=== PATIENT | female | born 1995 | race American Indian/Alaskan Native ===

== ENCOUNTER 2016-09-29 15:39 | Emergency (ER) | payer SELFPAY ==
[2016-09-30 09:06] LABS: URINE BILIRUBIN NEGATIVE (NEGATIVE); URINE CLARITY Clear (Clear); URINE COLOR AMBER (YELLOW); URINE GLUCOSE (UA) NORMAL (Normal)
[2016-09-30 09:07] LABS: HCG,QUALITATIVE URINE POSITIVE (NEGATIVE); SQUAMOUS EPITHIAL 11 /hpf (0-5); URINE BACTERIA RARE (<OCC); URINE BLOOD NEGATIVE (NEGATIVE); URINE LEUKOCYTE ESTERASE TRACE Leu/uL (Negative); URINE NITRATE NEGATIVE (NEGATIVE); URINE PROTEIN 2+ mg/dL (NEGATIVE); URINE UROBILINOGEN NORMAL mg/dL (0.2-1.0)
== END 2016-09-29 16:55 | disposition home or self-care (01) ==
LOC: C.ER 15:39
DX: Z32.01 Encounter for pregnancy test, result positive (principal)

== ENCOUNTER 2016-10-06 15:42 | Emergency (ER) | payer SELFPAY ==
[2016-10-06 15:56] VITALS: O2SAT 100
[2016-10-06] MEDS ORDERED: Sodium Chloride 0.9% 1,000 ML IV ONE (16:18)
--- NOTE | 2016-10-06 16:28 | C.PDOC ---
History Of Present Illness Patient presents to ED c/o nausea and vomiting a "parasite" this morning after breakfast. Patient is currently approx 5 weeks , LMP 6/10. She recently moved here from [facility] in June 2016. She denies current abdominal pain, fever, diarrhea, rectal bleeding, vaginal bleeding/discharge. She has no prior history of parasitic infections. Time Seen by Provider: 10/06/16 15:59 Chief Complaint (Nursing): GI Problem History Per: Patient, Family () History/Exam Limitations: language barrier Onset/Duration Of Symptoms: Hrs Current Symptoms Are (Timing): Better Severity: Mild Associated Symptoms: Nausea, Vomiting Past Medical History Reviewed: Historical Data, Nursing Documentation, Vital Signs Vital Signs: Last Vital Signs Temp 98.2 F 10/06/16 18:15 Pulse 90 10/06/16 18:15 Resp 16 10/06/16 18:15 BP 108/70 10/06/16 18:15 Pulse Ox 100 10/06/16 18:15 - Medical History PMH: No Chronic Diseases Family History: States: No Known Family Hx - Social History Hx Alcohol Use: No Hx Substance Use: No - Immunization History Hx Tetanus Toxoid Vaccination: Yes Hx Influenza Vaccination: No Hx Pneumococcal Vaccination: No Review Of Systems Except As Marked, All Systems Reviewed And Found Negative. Constitutional: Negative for: Fever, Chills Cardiovascular: Negative for: Chest Pain Respiratory: Negative for: Cough, Shortness of Breath Gastrointestinal: Positive for: Nausea, Vomiting. Negative for: Abdominal Pain , Diarrhea Genitourinary: Negative for: Dysuria, Hematuria, Vaginal Discharge, Vaginal Bleeding Physical Exam - Physical Exam Appears: Well, Non-toxic, No Acute Distress Oral Mucosa: Moist Cardiovascular: Rhythm Regular Respiratory: Normal Breath Sounds, No Rales, No Rhonchi, No Wheezing Gastrointestinal/Abdominal: Normal Exam, Bowel Sounds, Soft, No Tenderness Extremity: Normal ROM, No Pedal Edema, No Calf Tenderness Neurological/Psych: Oriented x3 ED Course And Treatment - Laboratory Results Result Diagrams: 10/06/16 16:47 10/06/16 16:47 O2 Sat by Pulse Oximetry: 100 (RA) Pulse Ox Interpretation: Normal Progress Note: Patient has picture of what appears to be an intestinal round worm (Ascaris?) that she vomited up [employer]. Blood work, UA, ova/parasite stool sample ordered. Patient given IV NS bolus. Will discuss with ID. Reevaluation Time: 18:15 Reassessment Condition: Improved (Patient reassessed, is currently comfortable, in no pain/distress. Patient instructed to follow up with ID physician within 1 week. She understands she should return to ED if symptoms worsen. Stool studies sent and pending, to be followed up by ID.) - Physician Consult Information Physician Contacted: Alanis Allen Outcome Of Conversation: Discussed patient with otolaryngology surgeon ID, she recommends treated patient symptomatically only at this time, getting stool ova/parasites and outpatient followup if stool is (+). Disposition Counseled Patient/Family Regarding: Studies Performed, Diagnosis, Need For Followup, Rx Given - Disposition Referrals: Alanis Allen MD [Staff Provider] - [facility] [Outside] [facility] [Outside] Disposition: HOME/ ROUTINE Disposition Time: 18:15 Condition: STABLE Additional Instructions: FOLLOW UP WITH INFECTIOUS DISEASE SPECIALIST WITHIN 1 WEEK USE MEDICATION FOR NAUSEA NEEDED RETURN TO ER IF SYMPTOMS WORSEN Prescriptions: Ondansetron [Zofran Odt] 4 mg PO Q8 PRN #12 odt PRN Reason: Nausea/Vomiting Multivit/Folic Acid/I [ Plus] 1 tab PO DAILY #30 tab Forms: General Discharge Instructions Print Language: DIVEHI - POA Present On Arrival: None - Clinical Impression Clinical Impression: Parasite infection, Nausea and vomiting,
[2016-10-06 16:50] LABS: BASO % 0.7 % (0.0-2.0); EOS # 0.1 K/uL (0.0-0.7); EOS % 1.4 % (0.0-4.0); HEMOGLOBIN 12.1 g/dL (11.0-16.0); LYMPH # 1.5 K/uL (1.0-4.3); LYMPH % 30.1 % (20.0-40.0); MEAN CELL VOLUME 92.2 fL (81.0-99.0); MEAN CORPUSCULAR HEMOGLOBIN 30.8 pg (27.0-31.0); MEAN CORPUSCULAR HGB CONC 33.3 g/dL (33.0-37.0); MEAN PLATELET VOLUME 9.4 fL (7.2-11.7); MONO # 0.4 K/uL (0.0-0.8); MONO % 8.3 % (0.0-10.0); NEUT % 59.5 % (50.0-75.0); RBC 3.92 Mil/uL (3.80-5.20); RED CELL DISTRIBUTION WIDTH 12.3 % (11.5-14.5); WHITE BLOOD COUNT 5.1 K/uL (4.8-10.8)
[2016-10-06 16:58] LABS: SQUAMOUS EPITHIAL 122 /hpf (0-5); URINE BILIRUBIN NEGATIVE (NEGATIVE); URINE BLOOD NEGATIVE (NEGATIVE); URINE CLARITY Hazy (Clear); URINE COLOR Amber (YELLOW); URINE GLUCOSE (UA) NORMAL (Normal); URINE LEUKOCYTE ESTERASE 2+ Leu/uL (Negative); URINE NITRATE NEGATIVE (NEGATIVE); URINE PROTEIN 1+ mg/dL (NEGATIVE); URINE UROBILINOGEN NORMAL mg/dL (0.2-1.0)
[2016-10-06 16:59] LABS: ALBUMIN 4.2 g/dL (3.5-5.0)
[2016-10-06 17:02] LABS: ALT/SGPT 63 U/L (9-52); AST/SGOT 41 U/L (14-36); BLOOD UREA NITROGEN 5 mg/dL (7-17); GFR AFRICAN-AMERICAN > 60; GFR NON-AFRICAN AMERICAN > 60
[2016-10-06 17:03] LABS: CALCIUM 9.5 mg/dl (8.6-10.4); LIPASE 96 U/L (23-300)
[2016-10-06 17:13] LABS: ALB/GLOB RATIO 1.1 (1.0-2.1)
[2016-10-06 18:17] VITALS: BP 108/70; PULSE 90; RESP 16; TEMP 98.2
== END 2016-10-06 18:15 | disposition home or self-care (01) ==
LOC: C.ER 15:42
DX: O98.811 Other maternal infectious and parasitic diseases complicating pregnancy, first trimester (principal); O21.0 Mild hyperemesis gravidarum; Z3A.01 Less than 8 weeks gestation of pregnancy